=== PATIENT | male | born 1965 | race Caucasian/White ===

== ENCOUNTER 2020-10-29 08:47 | Emergency (ER) | payer OTHER ==
--- NOTE | 2020-10-29 09:38 | EDM.PDOC ---
ED HPI GENERAL MEDICAL PROBLEM - General Chief Complaint: Laceration Stated Complaint: INJURED LIP WHILE USING A CHAIN Time Seen by Provider: 10/29/20 09:08 Source of Information: Reports: Patient History Limitations: Reports: No Limitations - History of Present Illness INITIAL COMMENTS - FREE TEXT/NARRATIVE: Patient presents with questions about a laceration sustained to the right upper lip region yesterday while tightening a load binder on his truck. 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 It does not go all the way into the mouth through the mucosa. He debated coming in yesterday but decided to see how it would do. It has been approximately 24 hours since the injury happened. He has prior injuries to the face that have healed well. He believes his tetanus is up-to-date as he follows in the [facility] system here. Duration: Day(s): (1) Location: Reports: Face Quality: Reports: Ache Severity: Mild Improves with: Reports: None Worsens with: Reports: None Context: Reports: Trauma Associated Symptoms: Reports: No Other Symptoms - Related Data Allergies Allergy/AdvReac Type Severity Reaction Status Date / Time No Known Allergies Allergy Verified 10/29/20 09:06 Home Meds: Home Meds Losartan [Cozaar] 100 mg PO DAILY 10/29/20 [History] Metoprolol Succinate [Toprol XL] 25 mg PO DAILY 10/29/20 [History] Pantoprazole [ProTONIX Granules] 40 mg PO DAILY 10/29/20 [History] Sertraline [Zoloft] 100 mg PO BEDTIME 10/29/20 [History] amLODIPine Besylate [Amlodipine Besylate] 10 mg PO DAILY 10/29/20 [History] hydroCHLOROthiazide [Hydrochlorothiazide] 25 mg PO DAILY 10/29/20 [History] Past Medical History HEENT History: Reports: Impaired Vision Cardiovascular History: Reports: Hypertension Respiratory History: Reports: Sleep Apnea Other Respiratory History: cpap Gastrointestinal History: Reports: GERD Genitourinary History: Reports: Other (See Below) Other Genitourinary History: frequecy Musculoskeletal History: Reports: None Psychiatric History: Reports: Anxiety, Panic Attack Endocrine/Metabolic History: Reports: Obesity/BMI 30+ - Past Surgical History Head Surgeries/Procedures: Reports: None HEENT Surgical History: Reports: None Cardiovascular Surgical History: Reports: None Respiratory Surgical History: Reports: None GI Surgical History: Reports: None Endocrine Surgical History: Reports: None Musculoskeletal Surgical History: Reports: Carpal Tunnel Dermatological Surgical History: Reports: None Social & Family History - Tobacco Use Tobacco Use Status *Q: Never Tobacco User Second Hand Smoke Exposure: No - Caffeine Use Caffeine Use: Reports: Coffee, Soda - Recreational Drug Use Recreational Drug Use: No ED ROS GENERAL - Review of Systems Review Of Systems: Comprehensive ROS is negative, except as noted in HPI. ED EXAM, SKIN/RASH Exam: See Below Exam Limited By: No Limitations General Appearance: Alert, No Apparent Distress Throat/Mouth: Other (There is a roughly 1.5 cm superficial to partial thickness vertical laceration extending from the vermilion border of the midportion of the upper lip region. There is no through and through component to it there is no muscle involvement. There already appears to be some granulation tissue present.) Course - Vital Signs Last Recorded V/S: Last Vital Signs Temp 36.4 C 10/29/20 09:12 Pulse 67 10/29/20 09:12 Resp 16 10/29/20 09:12 BP 138/75 10/29/20 09:12 Pulse Ox 98 10/29/20 09:12 - Re-Assessments/Exams Free Text/Narrative Re-Assessment/Exam: 10/29/20 18:16 I discussed with him that the injury is at a borderline time frame for being able to suture and have ongoing wound integrity. He has opted to let the wound heal by secondary intention. We discussed that down the road if he is looking for a different cosmetic appearance, it could be revised by a plastic surgeon. The wound is not uncomfortable for him and he has sustained many other minor skin injuries over the years and is not worried about this. He will contact his clinic on next week to verify when he last received a tetanus booster. Reasons to return to emergency department reviewed. Departure - Departure Time of Disposition: : Disposition: Home, Self-Care 01 Condition: Good Clinical Impression: Laceration of face Qualifiers: Encounter type: initial encounter Qualified Code(s): S01.81XA - Laceration without foreign body of other part of head, initial encounter - Discharge Information Instructions: Nonsutured Laceration Care Referrals: PCP,None [Primary Care Provider] - Forms: ED Department Discharge Additional Instructions: Avoid stretching the laceration is much as possible when eating or drinking. This will gradually fill in from the inside out but it would likely be several weeks before its even with the rest of the skin surface. Depending on how it looks down the road, the plastic surgeon could revise what ever scar is present at that time to make it smaller. Routine water cleansing is fine. You do not need to use alcohol, hydrogen peroxide, iodine as those will actually interfere with healing. Recheck with your clinic team to verify when you last got a tetanus booster shot. Feeling worse in any way, return to emergency department. Sepsis Event Note (ED) - Evaluation Sepsis Screening Result: No Definite Risk - Focused Exam Vital Signs: Vital Signs Temp Pulse Resp BP Pulse Ox 10/29/20 09:12 36.4 C 67 16 138/75 98 10/29/20 09:11 36.4 C 67 16 138/75 98
== END 2020-10-29 09:44 | disposition home or self-care (01) ==
LOC: JP.ED 08:47
DX: S01.511A Laceration without foreign body of lip, initial encounter (principal); I10 Essential (primary) hypertension; K21.9 Gastro-esophageal reflux disease without esophagitis; F41.9 Anxiety disorder, unspecified; E66.9 Obesity, unspecified; Z68.35 Body mass index [BMI] 35.0-35.9, adult; W22.8XXA Striking against or struck by other objects, initial encounter
CPT/HCPCS: 99282